=== PATIENT | male | born 1965 | race American Indian/Alaskan Native ===

== ENCOUNTER 2017-01-01 20:06 | Emergency (ER) | payer OTHER ==
[2017-01-01] MEDS ORDERED: NACL 0.9% 500 ML 500 ML IV ONE (21:23)
[2017-01-01 22:08] LABS: Hemoglobin 13.1 gm/dl (11.8-15.2); Mean Corpuscular HGB Conc 31 % (32-34); Mean Corpuscular Volume 77 fl (84-94); Platelet Count 199 K/mm3 (140-440); Red Blood Count 5.44 M/mm3 (3.65-5.03); Red Cell Distribution Width 17.2 % (13.2-15.2); White Blood Count 2.9 K/mm3 (4.5-11.0)
[2017-01-01 22:09] LABS: Mean Corpuscular Hemoglobin 24 pg (28-32)
[2017-01-01 22:31] LABS: Alanine Aminotransferase 39 units/L (7-56); Alkaline Phosphatase 200 units/L (35-129); Anion Gap 17 mmol/L; Blood Urea Nitrogen 15 mg/dL (9-20); Calcium 9.3 mg/dL (8.4-10.2); Carbon Dioxide 24 mmol/L (22-30); Chloride 101.5 mmol/L (98-107); Glucose 91 mg/dL (75-100); Potassium 4.4 mmol/L (3.6-5.0); Sodium 138 mmol/L (137-145)
[2017-01-01 22:35] LABS: INR > 17.67 (0.87-1.13)
--- NOTE | 2017-01-01 22:42 | Cat Scan Report ---
FINAL REPORT EXAM: CT HEAD/BRAIN WO CON HISTORY: Headache, Dizzy, Blurred vision TECHNIQUE: CT head without contrast PRIORS: None. FINDINGS: No acute intra-axial or extra-axial hemorrhage is identified. There is no evidence of midline shift or mass effect. The ventricles and sulci are within normal limits. Graham-white matter differentiation is intact. No acute parenchymal abnormalities seen. Bony calvarium is grossly intact. Demonstrated is mucosal thickening within the left maxillary sinus, frontal sinus and multiple ethmoid air cells. IMPRESSION: Sinusitis which appears chronic No acute intracranial findings
[2017-01-01 22:46] LABS: Basophils % (Manual) 0 % (0.0-1.8); Blastocytes % (Manual) 0 %
[2017-01-01 22:47] LABS: Hypochromasia Few; Large Platelets Few; Platelet Estimate Consistent w Auto
[2017-01-01 22:48] LABS: Anisocytosis Few; Elliptocytes Few
[2017-01-01 22:49] LABS: Diff Status Complete; Tear Drop Cells Few
[2017-01-01 23:13] VITALS: BP 136/76
[2017-01-01] MEDS ORDERED: TORADOL IV ONE (23:21)
[2017-01-01 23:35] LABS: INR 1.05 (0.87-1.13)
[2017-01-01 23:36] LABS: Partial Thromboplastin Time 36.2 Sec. (24.2-36.6)
[2017-01-01 23:50] LABS: Bilirubin,Urine NEG (Negative); Blood,Urine NEG (Negative); Ketones,Urine NEG (Negative); Leukocyte Esterase,Urine NEG (Negative); Nitrite,Urine NEG (Negative); Protein,Urine <15 mg/dL mg/dL (Negative); Urobilinogen,Urine < 2.0 mg/dL (<2.0); WBC,Urine < 1.0 /HPF (0.0-6.0)
--- NOTE | 2017-01-02 00:47 | Emergency Department Report ---
ED Fever HPI - General Chief Complaint: Pain General Stated Complaint: BODY ACHES/DIZZINESS Time Seen by Provider: 01/01/17 23:14 Source: patient, old records Exam Limitations: no limitations - History of Present Illness Initial Comments: 51-year-old male with no significant past medical history presents to the hospital with complaints of headache, dizziness, generalized body aches, subjective fever, decreased appetite, lightheadedness, generalized malaise 2 weeks. Headache is at the middle to the front of his head and rated 4/10 in intensity. He denies neck stiffness, posterior headache, chest pain, shortness of breath, cough, nausea, vomiting, diarrhea, abdominal pain, dysuria. Patient was admitted here May 2015 for similar symptoms. Medical record reviewed. Patient was admitted for possible sepsis then subsequently felt to be due to a viral syndrome. Tested negative or HIV at that time. ED Review of Systems ROS: Stated complaint: BODY ACHES/DIZZINESS Other details as noted in HPI Comment: All other systems reviewed and negative Other: Constitutional:+ chills, fever, decrease appetite, weight losss Eyes: No eye pain visual changes ENT: No ear pain or throat pain Neck: Denies pain Respiratory: Denies cough wheezing shortness of breath Cardiovascular: Denies chest pain, palpitations, syncope GI: Denies abdominal pain, nausea, vomiting, diarrhea : Denies dysuria Musculoskeletal: generalized aches Skin: Denies rash, lesions, erythema Neurologic: Denies headache, numbness Psychiatric: Denies suicidal ideation, hallucinations ED Past Medical Hx - Past Medical History Previous Medical History?: Yes Hx Congestive Heart Failure: No Hx Diabetes: No Hx Asthma: No Hx COPD: No Hx HIV: No Additional medical history: chronic pain - Surgical History Past Surgical History?: No - Social History Smoking Status: Never Smoker Substance Use Type: None - Medications Home Medications: Home Medications Medication Instructions Recorded Confirmed Last Taken Type Benzonatate [Tessalon Perles] 100 mg PO Q8HR 4 Days 06/08/15 Unknown Rx Ferrous Sulfate [Feosol 325 MG tab] 325 mg PO QDAY #30 tablet 06/08/15 Unknown Rx Amoxicillin/K Clav Tab [Augmentin 1 tab PO Q12HR #14 tab 01/02/17 Unknown Rx 875 mg] Ibuprofen [Motrin] 800 mg PO Q8HR PRN #30 tablet 01/02/17 Unknown Rx traMADol [Ultram 50 MG tab] 50 mg PO Q6HR PRN #20 tablet 01/02/17 Unknown Rx ED Physical Exam - General Limitations: No Limitations - Other Other exam information: General: No limitations, patient is alert in no acute distress Head exam: Atraumatic, normocephalic Eyes exam: Normal appearance ENT: Moist mucous membrane, no exudate, no thrush Neck exam: Normal inspection, full range of motion, no meningismus nontender Respiratory exam: Clear to auscultation bilateral, no wheezes, rales, crackles Cardiovascular: Normal rate and rhythm, normal heart sounds Abdomen: Soft, nondistended, and nontender, with normal bowel sounds, no rebound, or guarding Extremity: Full range of motion normal inspection no deformity Back: Normal Inspection, full range of motion, no tenderness Neurologic: Alert, oriented x3, cranial nerves intact, no motor or sensory deficit Psychiatric: normal affect, normal mood Skin: Warm, dry, intact ED Course Vital Signs 01/01/17 01/01/17 01/01/17 21:20 23:08 23:12 Temperature 99.2 F Pulse Rate 91 H 71 79 Respiratory 20 20 Rate Blood Pressure Blood Pressure 143/91 136/76 [Right] O2 Sat by Pulse 98 99 Oximetry 01/01/17 23:15 Temperature Pulse Rate 75 Respiratory 24 Rate Blood Pressure 136/76 Blood Pressure [Right] O2 Sat by Pulse 99 Oximetry - Reevaluation(s) Reevaluation #1: 01/02/17 00:47 Positive orthostatic vital signs were treated with normal saline 1 L bolus. Patient received Toradol for generalized body aches ED Medical Decision Making - Lab Data Result diagrams: 01/01/17 21:55 01/01/17 21:55 Lab Results 01/01/17 01/01/17 01/01/17 Range/Units 21:55 21:55 21:55 WBC 2.9 L (4.5-11.0) K/mm3 RBC 5.44 H (3.65-5.03) M/mm3 Hgb 13.1 (11.8-15.2) gm/dl Hct 42.0 (35.5-45.6) % MCV 77 L (84-94) fl MCH 24 L (28-32) pg MCHC 31 L (32-34) % RDW 17.2 H (13.2-15.2) % Plt Count 199 (140-440) K/mm3 [place] % (Auto) Pigment Making Supervisor Add Manual Diff Complete Total Counted 100 Seg Neutrophils % Pigment Making Supervisor Seg Neuts % (Manual) 32.0 L (40.0-70.0) % Band Neutrophils % 0 % Lymphocytes % (Manual) 50.0 H (13.4-35.0) % Reactive Lymphs % (Man) 0 % Monocytes % (Manual) 12.0 H (0.0-7.3) % Eosinophils % (Manual) 6.0 H (0.0-4.3) % Basophils % (Manual) 0 (0.0-1.8) % Metamyelocytes % 0 % Myelocytes % 0 % Promyelocytes % 0 % Blast Cells % 0 % Nucleated RBC % Not Reportable Seg Neutrophils # Man 0.9 L (1.8-7.7) K/mm3 Band Neutrophils # 0.0 K/mm3 Lymphocytes # (Manual) 1.5 (1.2-5.4) K/mm3 Abs React Lymphs (Man) 0.0 K/mm3 Monocytes # (Manual) 0.3 (0.0-0.8) K/mm3 Eosinophils # (Manual) 0.2 (0.0-0.4) K/mm3 Basophils # (Manual) 0.0 (0.0-0.1) K/mm3 Metamyelocytes # 0.0 K/mm3 Myelocytes # 0.0 K/mm3 Promyelocytes # 0.0 K/mm3 Blast Cells # 0.0 K/mm3 WBC Morphology Not Reportable Hypersegmented Neuts Not Reportable Hyposegmented Neuts Not Reportable Hypogranular Neuts Not Reportable Smudge Cells Not Reportable Toxic Granulation Not Reportable Toxic Vacuolation Not Reportable Dohle Bodies Not Reportable Pelger-Huet Anomaly Not Reportable Bianca Rods Not Reportable Platelet Estimate Consistent w auto Clumped Platelets Not Reportable Plt Clumps, EDTA Not Reportable Large Platelets Few Giant Platelets Not Reportable Platelet Satelliting Not Reportable Plt Morphology Comment Not Reportable RBC Morphology Not Reportable Dimorphic RBCs Not Reportable Polychromasia Not Reportable Hypochromasia Few Poikilocytosis Not Reportable Anisocytosis Few Microcytosis Not Reportable Macrocytosis Not Reportable Spherocytes Not Reportable Pappenheimer Bodies Not Reportable Sickle Cells Not Reportable Target Cells Not Reportable Tear Drop Cells Few Ovalocytes Not Reportable Helmet Cells Not Reportable [place] Bodies Not Reportable [place] Rings Not Reportable [place] Cells Not Reportable Bite Cells Not Reportable Crenated Cell Not Reportable Elliptocytes Few Acanthocytes (Spur) Not Reportable Rouleaux Not Reportable Hemoglobin C Crystals Not Reportable Schistocytes Not Reportable Malaria parasites Not Reportable Aniket Bodies Not Reportable Hem Pathologist Commnt No PT > 120.0 H (12.2-14.9) Sec. INR > 17.67 H* (0.87-1.13) APTT (24.2-36.6) Sec. VBG pH (7.320-7.420) Sodium 138 (137-145) mmol/L Potassium 4.4 (3.6-5.0) mmol/L Chloride 101.5 (98-107) mmol/L Carbon Dioxide 24 (22-30) mmol/L Anion Gap 17 mmol/L BUN 15 (9-20) mg/dL Creatinine 0.6 L (0.8-1.5) mg/dL Estimated GFR > 60 ml/min BUN/Creatinine Ratio 25.00 % Glucose 91 (75-100) mg/dL Lactic Acid (0.7-2.0) mmol/L Calcium 9.3 (8.4-10.2) mg/dL Total Bilirubin 0.30 (0.1-1.2) mg/dL AST 28 (5-40) units/L ALT 39 (7-56) units/L Alkaline Phosphatase 200 H (35-129) units/L Total Protein 8.0 (6.3-8.2) g/dL Albumin 4.0 (3.9-5) g/dL Albumin/Globulin Ratio 1.0 % Urine Color (Yellow) Urine Turbidity (Clear) Urine pH (5.0-7.0) Ur Specific [place] (1.003-1.030) Urine Protein (Negative) mg/dL Urine Glucose (UA) (Negative) mg/dL Urine Ketones (Negative) mg/dL Urine Blood (Negative) Urine Nitrite (Negative) Urine Bilirubin (Negative) Urine Urobilinogen (<2.0) mg/dL Ur Leukocyte Esterase (Negative) Urine WBC (Auto) (0.0-6.0) /HPF Urine RBC (Auto) (0.0-6.0) /HPF U Epithel Cells (Auto) (0-13.0) /HPF 01/01/17 01/01/17 01/01/17 Range/Units 21:55 21:55 23:10 WBC (4.5-11.0) K/mm3 RBC (3.65-5.03) M/mm3 Hgb (11.8-15.2) gm/dl Hct (35.5-45.6) % MCV (84-94) fl MCH (28-32) pg MCHC (32-34) % RDW (13.2-15.2) % Plt Count (140-440) K/mm3 [place] % (Auto) Add Manual Diff Total Counted Seg Neutrophils % Seg Neuts % (Manual) (40.0-70.0) % Band Neutrophils % % Lymphocytes % (Manual) (13.4-35.0) % Reactive Lymphs % (Man) % Monocytes % (Manual) (0.0-7.3) % Eosinophils % (Manual) (0.0-4.3) % Basophils % (Manual) (0.0-1.8) % Metamyelocytes % % Myelocytes % % Promyelocytes % % Blast Cells % % Nucleated RBC % Seg Neutrophils # Man (1.8-7.7) K/mm3 Band Neutrophils # K/mm3 Lymphocytes # (Manual) (1.2-5.4) K/mm3 Abs React Lymphs (Man) K/mm3 Monocytes # (Manual) (0.0-0.8) K/mm3 Eosinophils # (Manual) (0.0-0.4) K/mm3 Basophils # (Manual) (0.0-0.1) K/mm3 Metamyelocytes # K/mm3 Myelocytes # K/mm3 Promyelocytes # K/mm3 Blast Cells # K/mm3 WBC Morphology Hypersegmented Neuts Hyposegmented Neuts Hypogranular Neuts Smudge Cells Toxic Granulation Toxic Vacuolation Dohle Bodies Pelger-Huet Anomaly Bianca Rods Platelet Estimate Clumped Platelets Plt Clumps, EDTA Large Platelets Giant Platelets Platelet Satelliting Plt Morphology Comment RBC Morphology Dimorphic RBCs Polychromasia Hypochromasia Poikilocytosis Anisocytosis Microcytosis Macrocytosis Spherocytes Pappenheimer Bodies Sickle Cells Target Cells Tear Drop Cells Ovalocytes Helmet Cells [place] Bodies [place] Rings [place] Cells Bite Cells Crenated Cell Elliptocytes Acanthocytes (Spur) Rouleaux Hemoglobin C Crystals Schistocytes Malaria parasites Aniket Bodies Hem Pathologist Commnt PT 14.2 (12.2-14.9) Sec. INR 1.05 (0.87-1.13) APTT 36.2 (24.2-36.6) Sec. VBG pH 7.364 (7.320-7.420) Sodium (137-145) mmol/L Potassium (3.6-5.0) mmol/L Chloride (98-107) mmol/L Carbon Dioxide (22-30) mmol/L Anion Gap mmol/L BUN (9-20) mg/dL Creatinine (0.8-1.5) mg/dL Estimated GFR ml/min BUN/Creatinine Ratio % Glucose (75-100) mg/dL Lactic Acid 0.90 (0.7-2.0) mmol/L Calcium (8.4-10.2) mg/dL Total Bilirubin (0.1-1.2) mg/dL AST (5-40) units/L ALT (7-56) units/L Alkaline Phosphatase (35-129) units/L Total Protein (6.3-8.2) g/dL Albumin (3.9-5) g/dL Albumin/Globulin Ratio % Urine Color (Yellow) Urine Turbidity (Clear) Urine pH (5.0-7.0) Ur Specific [place] (1.003-1.030) Urine Protein (Negative) mg/dL Urine Glucose (UA) (Negative) mg/dL Urine Ketones (Negative) mg/dL Urine Blood (Negative) Urine Nitrite (Negative) Urine Bilirubin (Negative) Urine Urobilinogen (<2.0) mg/dL Ur Leukocyte Esterase (Negative) Urine WBC (Auto) (0.0-6.0) /HPF Urine RBC (Auto) (0.0-6.0) /HPF U Epithel Cells (Auto) (0-13.0) /HPF 01/01/17 Range/Units 23:25 WBC (4.5-11.0) K/mm3 RBC (3.65-5.03) M/mm3 Hgb (11.8-15.2) gm/dl Hct (35.5-45.6) % MCV (84-94) fl MCH (28-32) pg MCHC (32-34) % RDW (13.2-15.2) % Plt Count (140-440) K/mm3 [place] % (Auto) Add Manual Diff Total Counted Seg Neutrophils % Seg Neuts % (Manual) (40.0-70.0) % Band Neutrophils % % Lymphocytes % (Manual) (13.4-35.0) % Reactive Lymphs % (Man) % Monocytes % (Manual) (0.0-7.3) % Eosinophils % (Manual) (0.0-4.3) % Basophils % (Manual) (0.0-1.8) % Metamyelocytes % % Myelocytes % % Promyelocytes % % Blast Cells % % Nucleated RBC % Seg Neutrophils # Man (1.8-7.7) K/mm3 Band Neutrophils # K/mm3 Lymphocytes # (Manual) (1.2-5.4) K/mm3 Abs React Lymphs (Man) K/mm3 Monocytes # (Manual) (0.0-0.8) K/mm3 Eosinophils # (Manual) (0.0-0.4) K/mm3 Basophils # (Manual) (0.0-0.1) K/mm3 Metamyelocytes # K/mm3 Myelocytes # K/mm3 Promyelocytes # K/mm3 Blast Cells # K/mm3 WBC Morphology Hypersegmented Neuts Hyposegmented Neuts Hypogranular Neuts Smudge Cells Toxic Granulation Toxic Vacuolation Dohle Bodies Pelger-Huet Anomaly Bianca Rods Platelet Estimate Clumped Platelets Plt Clumps, EDTA Large Platelets Giant Platelets Platelet Satelliting Plt Morphology Comment RBC Morphology Dimorphic RBCs Polychromasia Hypochromasia Poikilocytosis Anisocytosis Microcytosis Macrocytosis Spherocytes Pappenheimer Bodies Sickle Cells Target Cells Tear Drop Cells Ovalocytes Helmet Cells [place] Bodies [place] Rings [place] Cells Bite Cells Crenated Cell Elliptocytes Acanthocytes (Spur) Rouleaux Hemoglobin C Crystals Schistocytes Malaria parasites Aniket Bodies Hem Pathologist Commnt PT (12.2-14.9) Sec. INR (0.87-1.13) APTT (24.2-36.6) Sec. VBG pH (7.320-7.420) Sodium (137-145) mmol/L Potassium (3.6-5.0) mmol/L Chloride (98-107) mmol/L Carbon Dioxide (22-30) mmol/L Anion Gap mmol/L BUN (9-20) mg/dL Creatinine (0.8-1.5) mg/dL Estimated GFR ml/min BUN/Creatinine Ratio % Glucose (75-100) mg/dL Lactic Acid (0.7-2.0) mmol/L Calcium (8.4-10.2) mg/dL Total Bilirubin (0.1-1.2) mg/dL AST (5-40) units/L ALT (7-56) units/L Alkaline Phosphatase (35-129) units/L Total Protein (6.3-8.2) g/dL Albumin (3.9-5) g/dL Albumin/Globulin Ratio % Urine Color Yellow (Yellow) Urine Turbidity Clear (Clear) Urine pH 6.0 (5.0-7.0) Ur Specific [place] 1.020 (1.003-1.030) Urine Protein <15 mg/dl (Negative) mg/dL Urine Glucose (UA) Neg (Negative) mg/dL Urine Ketones Neg (Negative) mg/dL Urine Blood Neg (Negative) Urine Nitrite Neg (Negative) Urine Bilirubin Neg (Negative) Urine Urobilinogen < 2.0 (<2.0) mg/dL Ur Leukocyte Esterase Neg (Negative) Urine WBC (Auto) < 1.0 (0.0-6.0) /HPF Urine RBC (Auto) 1.0 (0.0-6.0) /HPF U Epithel Cells (Auto) < 1.0 (0-13.0) /HPF - Radiology Data Radiology results: report reviewed CT: Chronic sinusitis of the left maxillary, frontal sinus, and multiple ethmoid air cells. No acute findings Chest x-ray: No acute findings (read by me) - Medical Decision Making Patient has a leukopenia however no other signs of sepsis at this time. Patient feels better after receiving 1 L IV fluids. Admits to decreased by mouth intake and likely is the cause of his orthostatic tachycardia. No bacterial source of infection identified. Tentative diagnosis is viral syndrome. Outpatient follow-up with PMD will be encouraged. Patient states he is an approximate find another PMD. Other options will be provided. Patient will be started on antibiotics for chronic sinusitis identified on CT scan. ENT follow-up encouraged. Initial coagulopathy likely secondary to lab/collection area and repeat coags were normal range. - Differential Diagnosis viral syndrome, bacterial infection, pneumonia, UTI, dehydration Critical Care Time: No Critical care attestation.: If time is entered above; I have spent that time in minutes in the direct care of this critically ill patient, excluding procedure time. ED Disposition Clinical Impression: Leukopenia, Viral syndrome, Chronic sinusitis Disposition: TO HOME OR SELFCARE Is pt being admited?: No Does the pt Need Aspirin: No Condition: Stable Instructions: Viral Syndrome (ED), Dehydration (ED), Sinusitis (ED) Additional Instructions: Your white blood cell count is low. I provided a copy of your labs. Please follow-up with your doctor or one of a doctor provider for further evaluation. Your CAT scan shows chronic sinusitis. An antibiotic was prescribed. Please follow with the ear nose throat doctor provided. Take the medication as prescribed for pain. Take Motrin or Tylenol as needed for fever. Return if symptoms worsen Prescriptions: Amoxicillin/K Clav Tab [Augmentin 875 mg] 1 tab PO Q12HR #14 tab Ibuprofen [Motrin] 800 mg PO Q8HR PRN #30 tablet PRN Reason: Pain traMADol [Ultram 50 MG tab] 50 mg PO Q6HR PRN #20 tablet PRN Reason: Pain Referrals: BRENDAN MALIK MD [Primary Care Provider] - 3-5 Days SIDDHARTH PATIÑO MD [Staff Physician] - 3-5 Days (primary care doctor) DOTTIE RIVERA MD [Staff Physician] - 3-5 Days (Ear Nose Throat (ENT) doctor) Time of Disposition: 01:04
--- NOTE | 2017-01-02 08:33 | XRay Report ---
PORTABLE CHEST INDICATION: Possible sepsis. COMPARISON: 06/07/2015 FINDINGS: Portable, frontal chest radiograph again demonstrates mild cardiomegaly. Normal mediastinal and hilar contours. Clear lungs. Mild thoracic spondylosis and slight dextrocurvature. CONCLUSION: Mild cardiomegaly without acute chest process, as described. Please correlate. Thank you for the opportunity to participate in this patient's care.
== END 2017-01-02 01:30 | disposition home or self-care (01) ==
LOC: ED 20:06
DX: B34.9 Viral infection, unspecified (principal); J32.9 Chronic sinusitis, unspecified; D72.819 Decreased white blood cell count, unspecified; G89.29 Other chronic pain
CPT/HCPCS: 36415; 70450; 71010; 80053; 81001; 82140; 82805; 85007; 85025; 85610; 85730; 93005; 93010; 96374; 99285; J1885; J7040